=== PATIENT | female | born 1965 | race Caucasian/White ===

== ENCOUNTER 2025-08-31 06:22 | Day surgery (SDC) | payer OTHER ==
[~2025-08-31] VITALS: Ht 154.9 cm; Wt 73.7 kg
[~2025-08-31 06:22] MED LIST: ATOR40TA28 PO; LEVO100 PO; LOSA-382 PO; METF-1211 PO
[2025-08-31] MEDS ORDERED: LIDOCAINE 2% 11 ML JELLY TP ONE (06:23)
[2025-08-31] MEDS ORDERED: LIDOCAINE 4% 50 ML SOLUTION TP ONE (06:23)
[2025-08-31] MEDS ORDERED: BENZOCAINE 20% 50 MCG/SPRAY 57 GM TP ONE (06:23)
[2025-08-31] MEDS ORDERED: ALBUTEROL SULFATE 2.5 MG/0.5 ML NEB SOLUTION NEB ONE (06:23)
[2025-08-31] MEDS ORDERED: SODIUM CHLORIDE 0.9% 1,000 ML ONE (07:13)
[2025-08-31 08:10] LABS: GLUCOMETER DEV NAME(LOC) SDS.; GLUCOSE,POINT OF CARE 118 MG/DL (70-110)
[2025-08-31] MEDS ORDERED: FentaNYL CITRATE PF 100 MCG/2 ML VIAL ONE (08:18)
[2025-08-31] MEDS ORDERED: MIDAZOLAM HCL 2 MG/2 ML VIAL ONE (08:20)
[2025-08-31] MEDS: SODIUM CHLORIDE 0.9% 1,000 ML IV ONE (08:50)
[2025-08-31 09:30] VITALS: PULSE 78; RESP 18; O2SAT 100
== END 2025-08-31 12:40 | disposition home or self-care (01) ==
LOC: SDS 06:22
PROVIDERS: ATTEND Internal Medicine Critical Care Medicine
DX: R05.3 Chronic cough (principal); R04.2 Hemoptysis; R06.2 Wheezing; R49.0 Dysphonia; R06.1 Stridor; R91.8 Other nonspecific abnormal finding of lung field; I10 Essential (primary) hypertension; E11.9 Type 2 diabetes mellitus without complications; Z79.84 Long term (current) use of oral hypoglycemic drugs; Z79.890 Hormone replacement therapy; Z79.899 Other long term (current) drug therapy; Z90.49 Acquired absence of other specified parts of digestive tract; Z90.710 Acquired absence of both cervix and uterus; Z98.891 History of uterine scar from previous surgery
CPT/HCPCS: 31623; 82962; 87206; 87101; 87220; 87070; 88108; 31624; 71045; 87015; J3010; J2250; J2919; J7030; J7613; Z7610